=== PATIENT | female | born 1965 | race African-American/Black ===

== ENCOUNTER 2016-09-30 21:49 | Emergency (ER) | payer MEDICARE, OTHER ==
[~2016-09-30] VITALS: Ht 165.1 cm; Wt 65.9 kg
[~2016-09-30 21:49] MED LIST: CLON1 PO; DEPA250T PO; DEPAKOTE PO; FLUP1TAB PO
[2016-09-30 22:05] VITALS: BP 132/74; PULSE 103; RESP 16; TEMP 98.2; O2SAT 98
[2016-09-30] MEDS ORDERED: RISP2TAB37 PO (22:10)
[2016-09-30] MEDS ORDERED: SERO200T PO (22:10)
[2016-09-30] MEDS ORDERED: SERO400T PO (22:10)
[2016-09-30] MEDS ORDERED: ZYPR10TA PO (22:10)
[2016-09-30 22:57] LABS: AUTOMATED NEUTROPHIL # 4.4 TH/MM3 (1.8-7.7); BASOPHIL % 0.4 % (0.0-2.0); EOSINOPHIL # 0.2 TH/MM3 (0-0.4); EOSINOPHIL % 2.2 % (0.0-4.0); HEMATOCRIT 37.9 % (35.0-46.0); HEMO FLAGS DIFF FINAL; LYMPHOCYTE # 1.6 TH/MM3 (1.0-4.8); MEAN CELL VOLUME 79.2 FL (80.0-100.0); MEAN CORPUSCULAR HEMOGLOBIN 27.1 PG (27.0-34.0); MEAN CORPUSCULAR HGB CONC 34.2 % (32.0-36.0); MONO % 11.4 % (0.0-8.0); PLATELET COUNT 307 TH/MM3 (150-450); RED BLOOD COUNT 4.79 MIL/MM3 (4.00-5.30); RED CELL DISTRIBUTION WIDTH 14.6 % (11.6-17.2); WHITE BLOOD COUNT 6.9 TH/MM3 (4.0-11.0)
[2016-09-30 23:20] LABS: ALT (GPT) 18 U/L (10-53); ANION GAP 4 MEQ/L (5-15); AST (GOT) 13 U/L (15-37); BICARBONATE 32.3 MEQ/L (21.0-32.0); BLOOD UREA NITROGEN 11 MG/DL (7-18); CHLORIDE 104 MEQ/L (98-107); GLOMERULAR FILTRATION RATE 127 ML/MIN (>89); SODIUM (NA) 140 MEQ/L (136-145)
[2016-09-30 23:22] LABS: ALKALINE PHOSPHATASE 78 U/L (45-117); AMPHETAMINE, URINE NEG (NEG); BARBITURATES, URINE NEG (NEG); COCAINE, URINE NEG (NEG); TOTAL BILIRUBIN ADULT 0.2 MG/DL (0.2-1.0)
--- NOTE | 2016-10-01 00:23 | PD ---
HPI Chief Complaint: Psychiatric Symptoms Time Seen by Provider: 00:09 Travel History International Travel<30 days: No Contact w/Intl Traveler<30days: No Traveled to known affect area: No History of Present Illness HPI 51-year-old female with history of bipolar disorder, depression here as a Nguyen act. Patient states that she has been increasingly depressed despite being compliant with Seroquel, Risperdal, Zyprexa. She states that these medications help her mood but she is still feeling down and suicidal. She has had some thoughts about cutting her wrists which she has done in the past. Patient was brought here as a Nguyen act and denies any medical complaints. PFSH Past Medical History Asthma: Yes Bipolar Disorder: Yes Depression: Yes Cardiovascular Problems: No COPD: Yes Diabetes: Yes (NOT ON MEDICATION) Diminished Hearing: No Gastrointestinal Disorders: No Genitourinary: No Hypertension: Yes Musculoskeletal: No Neurologic: No Psychiatric: Yes Reproductive: No Respiratory: Yes Immunizations Current: Yes Schizophrenia: Yes Tetanus Vaccination: Unknown ?: Not Menopausal: Yes : 4 Para: 1 Miscarriage: 1 : 2 Tubal Ligation: Yes Past Surgical History Abdominal Surgery: Yes (EXPLORATORY AND LAPAROSCOPY) Section: Yes Gynecologic Surgery: Yes Oral Surgery: Yes (PALATE SURGERY) Other Surgery: Yes Social History Alcohol Use: No (per patietn report ) Tobacco Use: Yes Substance Use: No (denies) Allergies-Medications (Allergen,Severity, Reaction): Coded Allergies: Clozaril (Verified Allergy, Severe, 12/20/10) Geodon (Verified Allergy, Severe, 12/20/10) Penicillin (Verified Allergy, Severe, 12/20/10) Thorazine (Verified Allergy, Severe, 12/20/10) Uncoded Allergies: TUNA (Allergy, Unknown, 12/13/10) Reported Meds & Prescriptions Reported Meds & Active Scripts Active Reported Zyprexa (Olanzapine) 10 Mg Tab 10 Mg PO HS Risperdal (Risperidone) 2 Mg Tab 2 Mg PO HS Seroquel (Quetiapine Fumarate) 400 Mg Tab 400 Mg PO HS Seroquel (Quetiapine Fumarate) 200 Mg Tab 200 Mg PO DAILY Seroquel (Quetiapine Fumarate) 200 Mg Tab 200 Mg PO DAILY Review of Systems Except as stated in HPI: all other systems reviewed are Neg Physical Exam Narrative GENERAL: Middle-aged female sleeping on exam but awakens easily to voice SKIN: Warm and dry. HEAD: Normocephalic. EYES: No scleral icterus. No injection or drainage. ENT: Mucous membranes pink and moist. NECK: Supple CARDIOVASCULAR: Regular rate and rhythm. RESPIRATORY: No accessory muscle use. MUSCULOSKELETAL: Normal gait NEUROLOGICAL: Awake and alert. Motor grossly within normal limits. Normal speech. PSYCHIATRIC: Blunted mood and affect. Suicidal ideation with plan to cut her wrists. Denies delusions, visual or auditory hallucinations, homicidal ideation Data Data Last Documented VS Vital Signs Date Time Temp Pulse Resp B/P Pulse Ox O2 Delivery O2 Flow Rate FiO2 09/30/16 22:05 98.2 103 16 132/74 98 Orders Complete Blood Count With Diff (09/30/16 22:40) Comprehensive Metabolic Panel (09/30/16 22:40) Drug Screen, Random Urine (09/30/16 22:40) Alcohol (Ethanol) (09/30/16 22:40) Psych Screen (09/30/16 22:40) Labs Laboratory Tests Test 09/30/16 22:50 White Blood Count 6.9 TH/MM3 Red Blood Count 4.79 MIL/MM3 Hemoglobin 13.0 GM/DL Hematocrit 37.9 % Mean Corpuscular Volume 79.2 FL Mean Corpuscular Hemoglobin 27.1 PG Mean Corpuscular Hemoglobin 34.2 % Concent Red Cell Distribution Width 14.6 % Platelet Count 307 TH/MM3 Mean Platelet Volume 7.7 FL Neutrophils (%) (Auto) 63.0 % Lymphocytes (%) (Auto) 23.0 % Monocytes (%) (Auto) 11.4 % Eosinophils (%) (Auto) 2.2 % Basophils (%) (Auto) 0.4 % Neutrophils # (Auto) 4.4 TH/MM3 Lymphocytes # (Auto) 1.6 TH/MM3 Monocytes # (Auto) 0.8 TH/MM3 Eosinophils # (Auto) 0.2 TH/MM3 Basophils # (Auto) 0.0 TH/MM3 CBC Comment DIFF FINAL Differential Comment Sodium Level 140 MEQ/L Potassium Level 4.0 MEQ/L Chloride Level 104 MEQ/L Carbon Dioxide Level 32.3 MEQ/L Anion Gap 4 MEQ/L Blood Urea Nitrogen 11 MG/DL Creatinine 0.60 MG/DL Estimat Glomerular Filtration 127 ML/MIN Rate Random Glucose 95 MG/DL Calcium Level 8.8 MG/DL Total Bilirubin 0.2 MG/DL Aspartate Amino Transf 13 U/L (AST/SGOT) Alanine Aminotransferase 18 U/L (ALT/SGPT) Alkaline Phosphatase 78 U/L Total Protein 7.3 GM/DL Albumin 3.5 GM/DL Urine Opiates Screen NEG Urine Barbiturates Screen NEG Urine Amphetamines Screen NEG Urine Benzodiazepines Screen NEG Urine Cocaine Screen NEG Urine Cannabinoids Screen NEG Ethyl Alcohol Level LESS THAN 3 MG/DL MDM Medical Decision Making Medical Screen Exam Complete: Yes Emergency Medical Condition: Yes Medical Record Reviewed: Yes Differential Diagnosis 51-year-old female with history of bipolar disorder, depression here as a Nguyen act for suicidal ideation with plan to cut her wrists. Differential includes depression, bipolar disorder, substance induced mood disorder, medication nonadherence. Narrative Course CBC, CMP, blood alcohol level and urine drug screen were obtained and unremarkable. Patient medically clear for psychiatric evaluation. Diagnosis Primary Impression: Suicidal ideation Additional Impressions: Bipolar disorder Depression Lianne Garzon MD Oct 01, 2016 00:23
[2016-10-01 01:47] VITALS: BP 132/62; PULSE 94; RESP 18; O2SAT 98
[2016-10-01 06:26] VITALS: BP 122/67; PULSE 90; RESP 19; O2SAT 100
--- NOTE | 2016-10-01 09:54 | MB ---
cc: KLEBER NUÑEZ MD DATE OF CONSULTATION: 10/01/2016 REQUESTING PHYSICIAN: Emergency department REASON FOR CONSULTATION Nguyen Act HISTORY OF PRESENT ILLNESS Ms. Downs is a 51-year-old -Russian female with a report with a history of his schizoaffective disorder who presents under Nguyen Act from [employer] [employer] alleging that the officer was dispatched to the scene because of a suicidal person and that the patient told the officer that she was feeling suicidal. Reviewing the electronic medical record, I note the patient was admitted most recently here under Dr. Muñoz in 2010 with a diagnosis of schizoaffective disorder. Reviewing the medication administration record from the patient's facility it appears that she has been adherent with her psychotropic medications. The patient seen and examined. Chart reviewed. Case discussed with nurse in the [facility]. There has been no evidence of any suicidality or homicidality in the [facility] and the patient has been in good behavioral control. On my examination this morning the patient recants her suicidal ideation from the night before she says, "I just wanted to go talk to somebody" and so she said she was suicidal. She denies any suicidal ideation, intent or plan at this time and says that she wants to live for her children and grandchildren. She describes her mood as fair and her sleep and appetite are okay. I can elicit no depressive or hypomanic / manic symptoms. She denies any audiovisual hallucinations. I can elicit no delusional beliefs. The remainder of the psychiatric ROS is negative. She is additionally requesting discharge from the emergency room this morning. PAST PSYCHIATRIC HISTORY The patient has a diagnosis of schizoaffective disorder. She follows at [facility]. Her most recent psychiatric admission here was under Dr. Muñoz as I said. She endorses one prior suicide attempt 15 years ago by trying to cut her wrists and she does have some healed scars from this. FAMILY HISTORY The patient denies any family history of mental illness. CHEMICAL DEPENDENCY HISTORY: The patient denies any history of abuse of drugs or alcohol. SOCIAL HISTORY The patient resides at [facility]. She has a twelfth grade education. She is not presently working. She has three children and several grandchildren. Denies any history. She does have a history of james theft charges. No reported access to guns or firearms. PAST MEDICAL HISTORY See electronic medical record. REVIEW OF SYSTEMS No reported headache, vision or hearing changes, chest pain, shortness of breath, bowel or bladder issues. No other physical complaints. PHYSICAL EXAMINATION Physical examination was completed in the emergency room by the ER staff and the patient was medically cleared. On my examination today, the patient appears to be in no acute physical distress. No abnormal motor movements noted. Labs and vital signs reviewed. MENTAL STATUS EXAM The patient is in hospital gown. She is fairly well-groomed and certainly maintaining basic hygiene. She is awake, alert and oriented to person and hospital at least. No abnormal motor movements noted. Speech is within normal limits for rate, tone and volume. Language and fund of knowledge seem mildly reduced for age. Mood is fair and affect is childlike but full and reactive. Thought process linear. No loosening of associations. No evident delusions. Denies audiovisual hallucinations. Denies suicidal or homicidal ideation. Insight and judgment are chronically poor. ASSESSMENT/PLAN 1. Schizoaffective disorder, presently stable. This is a 51-year-old -Russian female with psychiatric history as noted above who presents under a Nguyen Act from her [facility] facility after making suicidal statements. The patient apparently simply wanted someone to talk to and so had herself Nguyen Acted for this purpose. She denies any suicidal or homicidal ideation at this time. There is been no evidence of either while under observation in the OD. I can detect no unstable mood, anxiety or psychotic disorder in this patient at this time. She wants to live for her children and grandchildren. Weighing the acute, chronic, protective factors and based on the available evidence, I structural biologist to a reasonable degree with medical certainty that the patient is at low imminent risk of harm to self or others from mental illness and her level of function is adequate for her current level of outpatient care. The patient does not meet Nguyen Act criteria and I have lifted the Nguyen Act. The patient is to follow up with her outpatient provider. I have counseled the patient regarding warning signs for need to return to the psychiatric emergency room as part of a general safety plan. The patient is psychiatrically clear for discharge from the ED. Thank you very much for this consultation. Kleber HO /7:47 AM /8:12 AM JEM
== END 2016-10-01 09:45 | disposition home or self-care (01) ==
LOC: NEPA 21:49 → NEPJ 10-01 09:45
DX: F25.9 Schizoaffective disorder, unspecified (principal); F31.9 Bipolar disorder, unspecified; J45.909 Unspecified asthma, uncomplicated; J44.9 Chronic obstructive pulmonary disease, unspecified; E11.9 Type 2 diabetes mellitus without complications; I10 Essential (primary) hypertension; Z72.0 Tobacco use
CPT/HCPCS: 80053; 80307; 80320; 85025; 99285

== ENCOUNTER 2017-02-07 17:17 | Emergency (ER) | payer MEDICARE ==
[~2017-02-07 17:17] MED LIST changes: -CLON1 PO; -DEPA250T PO; -DEPAKOTE PO; -FLUP1TAB PO; +RISP2TAB37 PO; +SERO200T PO; +SERO400T PO; +ZYPR10TA PO
--- NOTE | 2017-02-07 17:42 | PD ---
HPI Chief Complaint: Nguyen act Time Seen by Provider: 17:31 Travel History International Travel<30 days: No Contact w/Intl Traveler<30days: No Traveled to known affect area: No History of Present Illness HPI 51-year-old female history of schizophrenia, bipolar, who was sent here by [facility] for treatment for her psychosis and aggressive behavior. The patient reportedly was taken there by the [employer] police and when evaluated by their provider, he found her to be too aggressive and Wendy acted her and sent her to [facility] for a higher level of care. He shouldn't is cooperative with me. She states that she has not been taking her medications as prescribed. She denies any homicidal or suicidal asked to me although she reportedly threatened to kill and herself as well as hurt others at [facility] according to their notes. PFSH Past Medical History Asthma: Yes Bipolar Disorder: Yes Depression: Yes Cardiovascular Problems: No COPD: Yes Diabetes: Yes (NOT ON MEDICATION) Diminished Hearing: No Gastrointestinal Disorders: No Genitourinary: No Hypertension: Yes Musculoskeletal: No Neurologic: No Psychiatric: Yes Reproductive: No Respiratory: Yes Immunizations Current: Yes Schizophrenia: Yes Menopausal: Yes : 4 Para: 1 Miscarriage: 1 : 2 Tubal Ligation: Yes Past Surgical History Abdominal Surgery: Yes (EXPLORATORY AND LAPAROSCOPY) Section: Yes Gynecologic Surgery: Yes Oral Surgery: Yes (PALATE SURGERY) Other Surgery: Yes Social History Alcohol Use: No (per patietn report ) Tobacco Use: Yes Substance Use: No (denies) Allergies-Medications (Allergen,Severity, Reaction): Coded Allergies: Clozaril (Verified Allergy, Severe, 12/20/10) Geodon (Verified Allergy, Severe, 12/20/10) Penicillin (Verified Allergy, Severe, 12/20/10) Thorazine (Verified Allergy, Severe, 12/20/10) Uncoded Allergies: TUNA (Allergy, Unknown, 12/13/10) Reported Meds & Prescriptions Reported Meds & Active Scripts Active Reported Invega Sustenna Inj (Paliperidone Palmitate) 234 Mg/1.5 Ml Inj 234 Mg IM MONTHLY Clonidine (Clonidine HCl) 0.1 Mg Tab 0.1 Mg PO TID Oxybutynin ER 24 HR (Oxybutynin Chloride) 5 Mg Tab 5 Mg PO BID Docusate Sodium 100 Mg Cap 100 Mg PO BID Oyster Shell Calcium + D3 (Calcium Carbonate-Cholecalciferol) 500-400 Mg-Unit Tab 1 Tab PO BID Breo Ellipta Inh (Fluticasone/Vilanterol) 100-25 Mcg/Act Inh 1 Puff INH DAILY Use daily at the same time. Lisinopril 10 Mg Tab 10 Mg PO DAILY Tussin Chest Congestion (Guaifenesin) 100 Mg/5 Ml Syp 200 Mg PO Q4HR PRN Ranitidine (Ranitidine HCl) 150 Mg Tab 150 Mg PO BID PRN Magnesium Citrate Liq (Magnesium Citrate) 300 Ml Btl 30 Ml PO DAILY PRN Mapap (Acetaminophen) 325 Mg Tab 650 Mg PO Q6HR PRN Bengay Ultra Strength 4-10-30 % (Tbrtxmf-Mkwglyf-Nbfbmi Salicyl) 1 Cre Cre 1 Applic TOPICAL BID Ventolin Hfa 18 GM Inh (Albuterol Sulfate) 90 Mcg/Act Aer 2 Puff INH QID PRN Zyprexa (Olanzapine) 10 Mg Tab 10 Mg PO HS Seroquel (Quetiapine Fumarate) 400 Mg Tab 400 Mg PO HS Review of Systems ROS Limitations: Psychotic (patient with schizophrenia), Poor Historian Except as stated in HPI: all other systems reviewed are Neg General / Constitutional: No: Fever, Chills HENT: No: Headaches, Lightheadedness, Neck Pain Cardiovascular: No: Chest Pain or Discomfort, Palpitations Respiratory: No: Cough, Shortness of Breath Gastrointestinal: No: Nausea, Vomiting, Abdominal Pain Musculoskeletal: No: Myalgias, Weakness Neurologic: No: Weakness, Dizziness, Headache Psychiatric: Positive: Disorder of Thought, Mood Disorder, No: Suicidal Ideations (denies), Substance Abuse (denies), Homicidal Ideation (denies) Physical Exam Narrative GENERAL: Well-nourished, well-developed patient, calm and cooperative. SKIN: Focused skin assessment warm/dry. HEAD: Normocephalic/atraumatic. EYES: No scleral icterus. No injection or drainage. NECK: Supple, trachea midline. CARDIOVASCULAR: Regular rate and rhythm without murmurs, gallops, or rubs. RESPIRATORY: Breath sounds equal bilaterally. No accessory muscle use. GASTROINTESTINAL: Abdomen soft, non-tender, nondistended. MUSCULOSKELETAL: No cyanosis, or edema. NEUROLOGICAL: Awake and alert. Cranial nerves II through XII intact. Motor grossly within normal limits. Five out of 5 muscle strength in all muscle groups. Normal speech. PSYCHIATRIC: Patient denies hallucinations. She is calm and cooperative. Data Data Orders Complete Blood Count With Diff (02/07/17 18:06) Comprehensive Metabolic Panel (02/07/17 18:06) Psych Screen (02/07/17 18:06) Potassium Chloride Eff (K-Lyte Cl Eff) (02/07/17 19:00) Labs Laboratory Tests Test 02/07/17 18:00 White Blood Count 7.6 TH/MM3 Red Blood Count 4.96 MIL/MM3 Hemoglobin 13.6 GM/DL Hematocrit 41.1 % Mean Corpuscular Volume 82.9 FL Mean Corpuscular Hemoglobin 27.5 PG Mean Corpuscular Hemoglobin 33.1 % Concent Red Cell Distribution Width 13.7 % Platelet Count 303 TH/MM3 Mean Platelet Volume 8.0 FL Neutrophils (%) (Auto) 68.3 % Lymphocytes (%) (Auto) 19.5 % Monocytes (%) (Auto) 10.6 % Eosinophils (%) (Auto) 1.4 % Basophils (%) (Auto) 0.2 % Neutrophils # (Auto) 5.2 TH/MM3 Lymphocytes # (Auto) 1.5 TH/MM3 Monocytes # (Auto) 0.8 TH/MM3 Eosinophils # (Auto) 0.1 TH/MM3 Basophils # (Auto) 0.0 TH/MM3 CBC Comment DIFF FINAL Differential Comment Sodium Level 138 MEQ/L Potassium Level 3.2 MEQ/L Chloride Level 101 MEQ/L Carbon Dioxide Level 30.2 MEQ/L Anion Gap 7 MEQ/L Blood Urea Nitrogen 4 MG/DL Creatinine 0.62 MG/DL Estimat Glomerular Filtration 122 ML/MIN Rate Random Glucose 111 MG/DL Calcium Level 8.9 MG/DL Total Bilirubin 0.5 MG/DL Aspartate Amino Transf 26 U/L (AST/SGOT) Alanine Aminotransferase 24 U/L (ALT/SGPT) Alkaline Phosphatase 75 U/L Total Protein 7.2 GM/DL Albumin 3.4 GM/DL MDM Medical Decision Making Medical Screen Exam Complete: Yes Emergency Medical Condition: Yes Differential Diagnosis Acute psychosis versus substance induced mood disorder versus metabolic arrangement. Narrative Course 51-year-old female with history of schizophrenia, bipolar disorder, who presents here under Nguyen act from [facility]. The patient was apparently too complicated for them to handle at their facility. The patient is cooperative with me. She was noted to be mildly hypokalemic. She's had her potassium replaced. She'll be medically cleared for psychiatric evaluation. Diagnosis Primary Impression: Psychosis Additional Impressions: mild hypokalemia Schizoaffective disorder Bipolar disorder Medical clearance for psychiatric admission Hernán Guthrie MD February 07, 2017 17:42
[2017-02-07] MEDS ORDERED: BENGCRE TOPICAL (18:10)
[2017-02-07] MEDS ORDERED: VENTAER INH (18:10)
[2017-02-07] MEDS ORDERED: RANI150T PO (18:17)
[2017-02-07] MEDS ORDERED: [UNRECOGNIZED DRUG - CODE] PO (18:17)
[2017-02-07] MEDS ORDERED: MAPA325T PO (18:17)
[2017-02-07] MEDS ORDERED: MAGNSOL PO (18:17)
[2017-02-07] MEDS ORDERED: [UNRECOGNIZED DRUG - CODE] PO (18:20)
[2017-02-07] MEDS ORDERED: [UNRECOGNIZED DRUG - CODE] PO (18:27)
[2017-02-07] MEDS ORDERED: FLUT1INH INH (18:27)
[2017-02-07] MEDS ORDERED: LISI10TA3 PO (18:27)
[2017-02-07] MEDS ORDERED: DOCU100C PO (18:27)
[2017-02-07] MEDS ORDERED: OXYB5TAB PO (18:27)
[2017-02-07] MEDS ORDERED: CLON0.1T PO (18:31)
[2017-02-07] MEDS ORDERED: PALI234P IM (18:31)
[2017-02-07 18:35] LABS: AUTOMATED NEUTROPHIL # 5.2 TH/MM3 (1.8-7.7); BASOPHIL % 0.2 % (0.0-2.0); EOSINOPHIL # 0.1 TH/MM3 (0-0.4); EOSINOPHIL % 1.4 % (0.0-4.0); HEMATOCRIT 41.1 % (35.0-46.0); HEMO FLAGS DIFF FINAL; LYMPH % 19.5 % (9.0-44.0); LYMPHOCYTE # 1.5 TH/MM3 (1.0-4.8); MEAN CELL VOLUME 82.9 FL (80.0-100.0); MEAN CORPUSCULAR HEMOGLOBIN 27.5 PG (27.0-34.0); MEAN CORPUSCULAR HGB CONC 33.1 % (32.0-36.0); MONO % 10.6 % (0.0-8.0); NEUT % 68.3 % (16.0-70.0); PLATELET COUNT 303 TH/MM3 (150-450); RED BLOOD COUNT 4.96 MIL/MM3 (4.00-5.30); RED CELL DISTRIBUTION WIDTH 13.7 % (11.6-17.2); WHITE BLOOD COUNT 7.6 TH/MM3 (4.0-11.0)
[2017-02-07 18:49] LABS: ANION GAP 7 MEQ/L (5-15); AST (GOT) 26 U/L (15-37); BICARBONATE 30.2 MEQ/L (21.0-32.0); BLOOD UREA NITROGEN 4 MG/DL (7-18); CHLORIDE 101 MEQ/L (98-107); GLOMERULAR FILTRATION RATE 122 ML/MIN (>89); POTASSIUM 3.2 MEQ/L (3.5-5.1); SODIUM (NA) 138 MEQ/L (136-145)
[2017-02-07 18:52] LABS: ALKALINE PHOSPHATASE 75 U/L (45-117); ALT (GPT) 24 U/L (10-53); TOTAL BILIRUBIN ADULT 0.5 MG/DL (0.2-1.0)
[2017-02-07] MEDS ORDERED: POTASSIUM CHLORIDE 25 MEQ EFFERVESCENT TAB PO ONE (19:00)
[2017-02-07 20:29] VITALS: BP 134/90; PULSE 100; RESP 18; TEMP 98.3; O2SAT 92
[2017-02-07 21:49] VITALS: BP 133/70; PULSE 106; RESP 16; TEMP 98.6; O2SAT 94
[2017-02-08 02:06] VITALS: RESP 17
[2017-02-08 06:12] VITALS: BP 124/68; PULSE 87; RESP 19; TEMP 98.7; O2SAT 96
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
[2017-02-08 11:34] VITALS: BP 124/68; TEMP 98.7
== END 2017-02-08 11:00 | disposition home or self-care (01) ==
LOC: NEPC 17:17 → NEPJ 02-08 11:00
DX: F29 Unspecified psychosis not due to a substance or known physiological condition (principal); F25.8 Other schizoaffective disorders; E87.6 Hypokalemia; F25.9 Schizoaffective disorder, unspecified; F31.9 Bipolar disorder, unspecified; J45.909 Unspecified asthma, uncomplicated; E11.9 Type 2 diabetes mellitus without complications; I10 Essential (primary) hypertension; Z72.0 Tobacco use
CPT/HCPCS: 80053; 85025; 99284

== ENCOUNTER 2018-05-18 11:27 | Inpatient (IN) ==
[2018-05-18] MEDS ORDERED: Aluminum/Magnesium/Simethacone Susp 30 ML UDC PO PRN (18:33)
[2018-05-19 08:40] LABS: Anion Gap 7 meq/L (5-15); Blood Urea Nitrogen 10 mg/dL (7-18); Calcium 8.7 mg/dL (8.5-10.1); Carbon Dioxide 27.2 meq/L (21.0-32.0); Chloride 99 meq/L (98-107); Glomerular Filtration Rate Greater Than 89 mL/min (>89); Glucose,Random 77 mg/dL (74-106); Potassium 4.3 meq/L (3.5-5.1); Sodium 133 meq/L (136-145)
[2018-05-19 08:41] LABS: Cholesterol 161 mg/dL (120-200)
[2018-05-19 08:43] LABS: Chol/HDL Ratio 2.96 Ratio; HDL Cholesterol 54.3 mg/dL (40.0-60.0); LDL Cholesterol,Calculated 92 mg/dL (0-99); Triglycerides 75 mg/dL (42-150)
[2018-05-19] MEDS ORDERED: Haloperidol Inj 5 MG/ML Ampul IM STA (08:54)
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
[2018-05-19 13:46] LABS: Hemoglobin A1c 5.8 % (4.3-6.0)
[2018-05-19] MEDS: QUEtiapine 25 MG Tablet PO SCH (17:03)
[2018-05-19] MEDS ORDERED: QUEtiapine 100 MG Tablet PO SCH (21:00)
[2018-05-20] MEDS: QUEtiapine 25 MG Tablet PO SCH ×2 (09:04→16:09)
--- NOTE | 2018-05-20 11:37 | P.PNPSY ---
Subjective Remarks: Patient seen in her room today with floor staff. Chart reviewed. Patient discussed with nurse. Patient continues somewhat intense and intrusive loud. She is compliant with the medication. Now denies voices or visions denies suicidality or homicidality. Patient does wish to return to her prison. We will have counselor investigate if there are bed is available consider discharge tomorrow Review of Systems All other systems reviewed negative except as stated in HPI Mental Status Examination Appearance: Disheveled Consciousness: Alert Orientation: Person, Place, Date/Time Motor Activity: Normal gait Speech: Rapid Language: Adequate Fund of Knowledge: Inadequate Attention and Concentration: Adequate (Fair) Memory: Unremarkable (4) Mood: Angry, Irritable Affect: Other (Decreased range and intensity) Thought Process & Associations: Disorganized Thought Content: Hallucinations Hallucination Type: Auditory, Visual Suicidal Ideation: No Suicidal Plan: No Suicidal Intention: No Homicidal Ideation: No Homicidal Plan: No Homicidal Intention: No Insight: Poor Judgment: Poor Assessment and Plan - Assessment (1) Schizoaffective disorder, bipolar type Code(s): F25.0 - Schizoaffective disorder, bipolar type Status: Acute - Plan Plan: Patient remains somewhat loud and intrusive but appears she psychosis is slowly resolving, compliant medications consider discharge tomorrow if placement can be confirmed Justification for Continued Inpatient Stay: At this time patient would decompensate if not placed in an appropriate level of care Discharge Planning: To be determined hopefully to return to her prison Request Healthcare Surrogate/Guardian Advocate?: No
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
[2018-05-21] MEDS: Acetaminophen 325 MG Tablet PO PRN ×2 (01:07→08:31)
[2018-05-21] MEDS: QUEtiapine 25 MG Tablet PO SCH ×3 (08:33→15:33)
--- NOTE | 2018-05-21 09:45 | P.TTN ---
- Patient Problems Problems: 1. Discharge planning 2. Medication compliance 3. Knowledge deficit 4. Lack of coping skills - Progress Toward Goals Provider Present: Dr. Prakash Padilla Provider Input: Need further stabilization, remains psychotic and impulsive, started on medications this weekend Nurse Input: Mirtha; patient is med compliant, but remains internally stimulated and sudden outbursts responding to voices and easily aggitatd by others Psychiatric Counselors Present: Elba Colin LCSW Psychiatric Therapist Input: Came from an [facility], will need to make contact to plan discharge, patient is established with [facility], overall has been yelling and cursing at this counselor over the weekend and within minutes is nice and cooperative like nothing happened. can benefit from further stabilization Group Spec/RT/OT/STORM Present: Ramiro Dickerson OT (attends 50% of groups) - Documentation Teaching Recipient: Patient
--- NOTE | 2018-05-21 11:52 | P.PNPSY ---
Subjective Remarks: Patient seen and lazar with nurse Debbie, chart reviewed, patient compliant medication. Patient continues intense distractible somewhat grandiose. Vague about any auditory hallucinations though it appears she does have a more towards evening. We will increase daily Seroquel to 75 mg twice daily continue at bedtime Seroquel no change Review of Systems All other systems reviewed negative except as stated in HPI Mental Status Examination Appearance: Disheveled Consciousness: Alert Orientation: Person, Place, Date/Time Motor Activity: Normal gait Speech: Rapid Language: Adequate Fund of Knowledge: Inadequate Attention and Concentration: Adequate (Fair) Memory: Unremarkable (4) Mood: Angry, Irritable Affect: Other (Decreased range and intensity) Thought Process & Associations: Disorganized Thought Content: Hallucinations Hallucination Type: Auditory, Visual Suicidal Ideation: No Suicidal Plan: No Suicidal Intention: No Homicidal Ideation: No Homicidal Plan: No Homicidal Intention: No Insight: Poor Judgment: Poor Assessment and Plan - Assessment (1) Schizoaffective disorder, bipolar type Code(s): F25.0 - Schizoaffective disorder, bipolar type Status: Acute - Plan Plan: Patient continues psychotic delusional, see medication adjustments Justification for Continued Inpatient Stay: At this time patient would decompensate a place to a lower level of care Discharge Planning: To be determined perhaps back to her prior placement Request Healthcare Surrogate/Guardian Advocate?: No
[2018-05-22] MEDS: QUEtiapine 25 MG Tablet PO SCH ×2 (08:48→15:23)
[2018-05-22] MEDS: Acetaminophen 325 MG Tablet PO PRN ×2 (09:04→17:16)
--- NOTE | 2018-05-22 13:27 | P.PNPSY ---
Subjective Remarks: Patient seen and lazar with nurse Shannan, chart reviewed, patient compliant medication. Patient still intense though not as intrusive. She is showing some mild increase in insight, she does deny suicidality at this time. At this time I feel patient has improved to the point where she now does not meet Nguyen criteria lift Wendy act allow patient to sign voluntary will continue treatment Review of Systems All other systems reviewed negative except as stated in HPI Mental Status Examination Appearance: Appropriate Consciousness: Alert Orientation: Person, Place, Date/Time Motor Activity: Normal gait Speech: Rapid Language: Adequate Fund of Knowledge: Inadequate Attention and Concentration: Adequate (Fair) Memory: Unremarkable (4) Mood: Other (Euthymic to somewhat intense) Affect: Other (Decreased range and intensity) Thought Process & Associations: Disorganized (Improved) Thought Content: Hallucinations (Improved) Hallucination Type: Auditory (Improved), Visual (Improved) Suicidal Ideation: No Suicidal Plan: No Suicidal Intention: No Homicidal Ideation: No Homicidal Plan: No Homicidal Intention: No Insight: Fair Judgment: Adequate Assessment and Plan - Assessment (1) Schizoaffective disorder, bipolar type Code(s): F25.0 - Schizoaffective disorder, bipolar type Status: Acute - Plan Plan: While patient remained psychotic she is improving at this point I feel patient longer meets Nguyen criteria lift Nguyen act allow her to sign voluntary Justification for Continued Inpatient Stay: At this point patient would decompensate a place to the lower level of care Discharge Planning: To be determined Request Healthcare Surrogate/Guardian Advocate?: No
[2018-05-23] MEDS: QUEtiapine 25 MG Tablet PO SCH (09:04)
[2018-05-23] MEDS: Acetaminophen 325 MG Tablet PO PRN (09:05)
--- NOTE | 2018-05-23 11:53 | P.PNPSY ---
Subjective Remarks: Patient seen and lazar with nurse Shannan, chart reviewed, patient compliant medication. Patient today showing some increase in intensity and range of her affect with speech is showing some increased rate and pressure she is also somewhat more grandiose today. She says she is willing to go back to her residential but her goal is to get her own apartment B room PE. We will increase Seroquel to 100 mg twice daily and 300 mg at at bedtime Review of Systems All other systems reviewed negative except as stated in HPI Mental Status Examination Appearance: Appropriate Consciousness: Alert Orientation: Person, Place, Date/Time Motor Activity: Normal gait Speech: Rapid Language: Adequate Fund of Knowledge: Inadequate Attention and Concentration: Adequate (Fair) Memory: Unremarkable (4) Mood: Other (Euthymic to somewhat intense) Affect: Other (Decreased range and intensity) Thought Process & Associations: Disorganized (Improved) Thought Content: Hallucinations (Improved) Hallucination Type: Auditory (Improved), Visual (Improved) Suicidal Ideation: No Suicidal Plan: No Suicidal Intention: No Homicidal Ideation: No Homicidal Plan: No Homicidal Intention: No Insight: Fair Judgment: Adequate Assessment and Plan - Assessment (1) Schizoaffective disorder, bipolar type Code(s): F25.0 - Schizoaffective disorder, bipolar type Status: Acute - Plan Plan: Patient is showing some increased signs of nain mild psychosis see medication adjustment above we will also add 5 mg Haldol IM as a as needed every 6 hours as needed for agitation Justification for Continued Inpatient Stay: At this time patient would decompensate a place to a lower level of care Discharge Planning: Hopefully to return to her residential Request Healthcare Surrogate/Guardian Advocate?: No
[2018-05-23] MEDS: QUEtiapine 100 MG Tablet PO SCH (16:57)
[2018-05-24] MEDS: Haloperidol Inj 5 MG/ML Ampul IM PRN (00:50)
[2018-05-24] MEDS: QUEtiapine 100 MG Tablet PO SCH ×2 (09:10→16:27)
--- NOTE | 2018-05-24 12:12 | P.PNPSY ---
Subjective Remarks: Patient seen and lazar with nurse Shannan, chart reviewed, patient compliant medication. Staff states patient only slept for about an hour last night today she continues somewhat intrusive rapid pressured speech and somewhat intense attitude. We will increase at bedtime Seroquel to 400 mg. Continue treatment over the weekend patient does well consider discharge on Sunday 05/27 Review of Systems All other systems reviewed negative except as stated in HPI Mental Status Examination Appearance: Appropriate Consciousness: Alert Orientation: Person, Place, Date/Time Motor Activity: Normal gait Speech: Rapid Language: Adequate Fund of Knowledge: Inadequate Attention and Concentration: Adequate (Fair) Memory: Unremarkable (4) Mood: Other (Euthymic to somewhat intense) Affect: Other (Decreased range and intensity) Thought Process & Associations: Disorganized (Improved) Thought Content: Hallucinations (Improved) Hallucination Type: Auditory (Improved), Visual (Improved) Suicidal Ideation: No Suicidal Plan: No Suicidal Intention: No Homicidal Ideation: No Homicidal Plan: No Homicidal Intention: No Insight: Fair Judgment: Adequate Assessment and Plan - Assessment (1) Schizoaffective disorder, bipolar type Code(s): F25.0 - Schizoaffective disorder, bipolar type Status: Acute - Plan Plan: Patient continues mildly manic state with some rapid pressured speech and some intrusiveness with intense eye contact she medication adjustments above Justification for Continued Inpatient Stay: At this time patient would decompensate a place to a lower level of care Discharge Planning: To be determined Request Healthcare Surrogate/Guardian Advocate?: No
[2018-05-24] MEDS: Acetaminophen 325 MG Tablet PO PRN (16:39)
[2018-05-25] MEDS: Haloperidol Inj 5 MG/ML Ampul IM PRN ×2 (08:35→16:21)
[2018-05-25] MEDS: QUEtiapine 100 MG Tablet PO SCH ×2 (08:35→16:54)
[2018-05-25] MEDS: Acetaminophen 325 MG Tablet PO PRN (08:53)
--- NOTE | 2018-05-25 12:19 | P.PNPSY ---
Subjective Remarks: Reviewed electronic medical records and discussed case with staff. Follow-up was conducted in the exam room with APOLINAR Hebert present. Patient has been cooperative and compliant with medications. She reports that she slept 8 hours last night. States that her appetite is been good. Denies any side effects. She is showered and washed her hair today. She does seem to be a bit tangential about health concerns. Still seems hypomanic. Mental Status Examination Appearance: Appropriate Consciousness: Alert Orientation: Person, Place, Date/Time Motor Activity: Normal gait Speech: Rapid Language: Adequate Fund of Knowledge: Inadequate Attention and Concentration: Adequate (Fair) Memory: Unremarkable (4) Mood: Other (Euthymic to somewhat intense) Affect: Other (Decreased range and intensity) Thought Process & Associations: Disorganized (Improved) Thought Content: Hallucinations (Improved) Hallucination Type: Auditory (Improved), Visual (Improved) Suicidal Ideation: No Suicidal Plan: No Suicidal Intention: No Homicidal Ideation: No Homicidal Plan: No Homicidal Intention: No Insight: Fair Judgment: Adequate Assessment and Plan - Plan Plan: Patient will be reevaluated Sunday by the attending psychiatrist. Continue with current treatment plan. Hopeful for discharge on Sunday. Justification for Continued Inpatient Stay: Moving this patient to a less restrictive environment would likely result in decompensation. Request Healthcare Surrogate/Guardian Advocate?: No
[2018-05-26] MEDS: Acetaminophen 325 MG Tablet PO PRN (00:35)
[2018-05-26] MEDS: Haloperidol Inj 5 MG/ML Ampul IM PRN ×2 (02:14→09:16)
[2018-05-26] MEDS: QUEtiapine 100 MG Tablet PO SCH ×2 (08:41→15:50)
--- NOTE | 2018-05-26 12:03 | P.PNPSY ---
Subjective Chief Complaint: Schizoaffective, Bipolar Type Remarks: Reviewed electronic medical records and discussed case with staff. Follow-up was conducted in the day room with APOLINAR Hebert present. Patient is internally stimulated and talking to herself. Sleeping and eating well. Appears in no distress. Nurse reports that patient was cursing and loud this morning. She was delusional and very disorganized. She was administered Haldol IM and per staff they are now able to re-direct her. Patient states that the injection made her feel better. She is currently eating lunch and engaging in conversation. Review of Systems All other systems reviewed negative except as stated in HPI Mental Status Examination Appearance: Appropriate Consciousness: Alert Orientation: Person, Place, Date/Time Motor Activity: Normal gait Speech: Rapid Language: Adequate Fund of Knowledge: Inadequate Attention and Concentration: Adequate (Fair) Memory: Impaired Mood: Appropriate (appropriate now, this morning disorganized and unable to redirect ) Affect: Other (Decreased range and intensity) Thought Process & Associations: Disorganized (Improved) Thought Content: Hallucinations (Improved) Hallucination Type: Auditory (Improved), Visual (Improved) Suicidal Ideation: No Suicidal Plan: No Suicidal Intention: No Homicidal Ideation: No Homicidal Plan: No Homicidal Intention: No Insight: Fair Judgment: Adequate Assessment and Plan - Assessment (1) Schizoaffective disorder, bipolar type Code(s): F25.0 - Schizoaffective disorder, bipolar type Status: Acute - Plan Plan: Patient will be reevaluated Sunday by the attending psychiatrist. Continue with current treatment plan. Hopeful for discharge on Sunday. Justification for Continued Inpatient Stay: Moving patient to a less restrictive environment may result in her decompensation. Request Healthcare Surrogate/Guardian Advocate?: No
[2018-05-27] MEDS: QUEtiapine 100 MG Tablet PO SCH ×2 (08:36→16:11)
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
[2018-05-27] MEDS: Acetaminophen 325 MG Tablet PO PRN (21:06)
[2018-05-28] MEDS: Acetaminophen 325 MG Tablet PO PRN ×2 (01:55→09:05)
[2018-05-28] MEDS: QUEtiapine 100 MG Tablet PO SCH (08:55)
== END 2018-05-28 09:45 ==
LOC: H260 17:15
PROVIDERS: ADMIT Psychiatry & Neurology Psychiatry; ATTEND Psychiatry & Neurology Psychiatry
CPT/HCPCS: 80048; 80061; 83036; J1200; J1630; J2060; Q0163